=== PATIENT | male | born 1985 | race Caucasian/White ===

== ENCOUNTER 2018-07-19 07:39 | Emergency (ER) | payer BC ==
[~2018-07-19] VITALS: Ht 167.6 cm; Wt 70.3 kg
[2018-07-19 07:43] VITALS: BP 150/99
[2018-07-19] MEDS ORDERED: ZESTORETIC 20-1 EAC1 PO (07:45)
[2018-07-19] MEDS ORDERED: BACTRIM DS TAB1 EACH PO (07:47)
[2018-07-19 08:02] LABS: URINE BILIRUBIN NEGATIVE (Negative); URINE BLOOD NEGATIVE (Negative); URINE CLARITY CLEAR; URINE COLOR YELLOW; URINE GLUCOSE-RANDOM* NEGATIVE (Negative); URINE KETONES NEGATIVE (Negative); URINE LEUKOCYTES NEGATIVE (Negative); URINE NITRITE NEGATIVE (Negative); URINE PROTEIN (DIPSTICK) NEGATIVE (Negative); URINE SPECIFIC GRAVITY >= 1.030 (1.005-1.035); URINE UROBILINOGEN 0.2 E.U./dl (0.2-1.0)
[2018-07-19] MEDS ORDERED: IBUPROFEN 400400 M2 PO (08:28)
== END 2018-07-19 08:40 | disposition home or self-care (01) ==
LOC: ER 07:39
PROVIDERS: Student in an Organized Health Care Education/Training Program
DX: N50.9 Disorder of male genital organs, unspecified (principal)